=== PATIENT | female | born 1945 ===

== ENCOUNTER 2017-06-05 23:05 | Observation (INO) | payer MEDICARE, OTHER ==
[2017-06-05 23:12] VITALS: RESP 16
[2017-06-06 00:30] LABS: BASO % 0.6 % (0.0-2.0); EOS # 0.2 K/uL (0.0-0.7); EOS % 2.9 % (0.0-4.0); HEMATOCRIT 36.4 % (34.0-47.0); LYMPH # 1.5 K/uL (1.0-4.3); LYMPH % 22.3 % (20.0-40.0); MEAN CELL VOLUME 84.2 fl (81.0-99.0); MEAN CORPUSCULAR HEMOGLOBIN 28.6 pg (27.0-31.0); MEAN CORPUSCULAR HGB CONC 33.9 g/dL (33.0-37.0); MEAN PLATELET VOLUME 7.5 fl (7.2-11.7); MONO # 0.4 K/uL (0.0-0.8); MONO % 6.9 % (0.0-10.0); NEUT # 4.4 K/uL (1.8-7.0); NEUT % 67.3 % (50.0-75.0); RED CELL DISTRIBUTION WIDTH 12.8 % (11.5-14.5); WHITE BLOOD COUNT 6.5 K/uL (4.8-10.8)
[2017-06-06 00:42] LABS: ALB/GLOB RATIO 1.3 (1.0-2.1); ALKALINE PHOSPHATASE 64 U/L (38-126); ALT/SGPT 27 U/L (9-52); AST/SGOT 19 U/L (14-36); BILIRUBIN,TOTAL 0.5 mg/dl (0.2-1.3); BLOOD UREA NITROGEN 25 mg/dl (7-17); CALCIUM 9.3 mg/dL (8.4-10.2); CARBON DIOXIDE 26 mmol/L (22-30); CHLORIDE 103 mmol/L (98-107); GFR AFRICAN-AMERICAN > 60; GLUCOSE,RANDOM 119 mg/dL (65-105); POTASSIUM 4.1 MMOL/L (3.6-5.0); SODIUM 140 mmol/l (132-148); TOTAL PROTEIN 7.3 G/DL (6.3-8.2)
--- NOTE | 2017-06-06 01:05 | ED PDOC ---
HPI: Abdomen Time Seen by Provider: 06/05/17 23:28 Chief Complaint (Nursing): Abdominal Pain Chief Complaint (Provider): epigastric pain History Per: Patient History/Exam Limitations: no limitations Additional Complaint(s): 71yo F with PMHx of HTN, DM, Asthma and ME x2 in 2007 and a TIA (Pt does not remember year), presents to ER with acute onset of epigastic pain radiating to back 10 with associated nausea without vomiting, cold sweats, dizziness and palpitations lasting several minutes prior to EMS arrivigin. Symptoms now are resolving. no longer has epigastic pain, but has decreases nausea and dizziness. PMD: MD Aleah Past Medical History Reviewed: Historical Data, Nursing Documentation, Vital Signs Vital Signs: Last Vital Signs Temp 97.4 F L 06/05/17 23:09 Pulse 64 06/05/17 23:09 Resp 16 06/05/17 23:09 BP 136/80 06/05/17 23:09 Pulse Ox 98 06/05/17 23:09 - Medical History PMH: Arthritis, Asthma, Cardia Arrhythmia, HTN - Family History Family History: States: No Known Family Hx - Home Medications Home Medications: Ambulatory Orders Medication Instructions Recorded Albuterol Sulfate [Proventil Hfa] 1 puff PO DAILY PRN 06/06/17 Aspirin [Aspirin Chewable] 81 mg PO DAILY 06/06/17 Carvedilol [Coreg] 50 mg PO DAILY 06/06/17 Cholecalciferol [Vitamin D 1000 IU] 1 tab PO DAILY 06/06/17 Escitalopram [Lexapro] 20 mg PO DAILY 06/06/17 Fluticasone/Salmeterol [Advair 1 puff PO DAILY 06/06/17 250-50 Diskus] Glyburide/Metformin HCl 1 tab PO BID 06/06/17 [Glyburid-Metformin 1.25-250 mg] Losartan [Cozaar] 100 mg PO DAILY 06/06/17 Meloxicam [Mobic] 15 mg PO DAILY 06/06/17 Pravastatin Sodium [Pravachol] 20 mg PO DAILY 06/06/17 Ranitidine HCl [Acid Machine Burrer] 150 mg PO BID 06/06/17 amLODIPine [Norvasc] 10 mg PO DAILY 06/06/17 - Allergies Allergies/Adverse Reactions: Allergies Allergy/AdvReac Type Severity Reaction Status Date / Time codeine Allergy DIZZINESS Verified 06/05/17 23:08 FISH Allergy VOMITING Verified 06/05/17 23:09 Review of Systems ROS Statement: Except As Marked, All Systems Reviewed And Found Negative Constitutional: Positive for: Chills, Sweats. Negative for: Fever, Malaise Cardiovascular: Positive for: Palpitations. Negative for: Chest Pain Respiratory: Positive for: Shortness of Breath Gastrointestinal: Positive for: Abdominal Pain. Negative for: Nausea Physical Exam - Reviewed Nursing Documentation Reviewed: Yes Vital Signs Reviewed: Yes - Physical Exam Appears: Positive for: Well, Non-toxic, No Acute Distress Skin: Positive for: Normal Color, Warm, DRY Eye Exam: Positive for: EOMI, Normal appearance, PERRL Neck: Positive for: Normal, Painless ROM Cardiovascular/Chest: Positive for: Regular Rate, Rhythm Respiratory: Positive for: CNT, Normal Breath Sounds Gastrointestinal/Abdominal: Positive for: Normal Exam, Bowel Sounds, Soft. Negative for: Tenderness Back: Positive for: Normal Inspection Extremity: Positive for: Normal ROM Neurologic/Psych: Positive for: Alert, Oriented - Laboratory Results Result Diagrams: 06/06/17 00:20 06/06/17 00:34 - ECG ECG: Positive for: Interpreted By Me (reviewed by MD Zandra) ECG Rhythm: Positive for: Normal QRS, Normal ST Segment, Sinus Rhythm O2 Sat by Pulse Oximetry: 98 - Radiology X-Ray: Interpreted by Me X-Ray Interpretation: No Acute Disease - Progress ED Course And Treament: 06/06/17 06/06/17 00:34 00:20 WBC 6.5 RBC 4.32 Hgb 12.3 Hct 36.4 MCV 84.2 MCH 28.6 MCHC 33.9 RDW 12.8 Plt Count 163 MPV 7.5 Neut % (Auto) 67.3 Lymph % (Auto) 22.3 [place] % (Auto) 6.9 Eos % (Auto) 2.9 Baso % (Auto) 0.6 Neut # 4.4 Lymph # 1.5 [place] # 0.4 Eos # 0.2 Baso # 0.0 Sodium 140 Potassium 4.1 Chloride 103 Carbon Dioxide 26 Anion Gap 15 BUN 25 H Creatinine 0.8 Est GFR ( Amer) > 60 Est GFR (Non-Af Amer) > 60 Random Glucose 119 H Calcium 9.3 Total Bilirubin 0.5 AST 19 ALT 27 Alkaline Phosphatase 64 Troponin I < 0.0120 Total Protein 7.3 Albumin 4.1 Globulin 3.2 Albumin/Globulin Ratio 1.3 Re-evaluation Time: 01:07 Condition: Improved (with use of zofran and pepcid. ) Medical Decision Making Medical Decision Making: pt will require admission observation to telemetry for Chest pain for repeat labs in the AM. Pt has many risk factors and would benefit from at least one night observation in telemetry. pt will be admitted to [facility]-Hospitalist Disposition - Clinical Impression Clinical Impression: Chest pain - Patient ED Disposition Is Patient to be Admitted: Yes - Disposition Disposition Time: 01:11 Condition: STABLE - Pt Status Changed To: Hospital Disposition Of: Inpatient - Admit Certification Admit to Inpatient:: After my assessment, the patient will require hospitalization for at least two midnights. This is because of the severity of symptoms shown, intensity of services needed, and/or the medical risk in this patient being treated as an outpatient.
[2017-06-06] MEDS ORDERED: Albuterol-Ipratrop 3 mg / 0.5 (3 ml) UD INH PRN (01:23)
--- NOTE | 2017-06-06 01:26 | CP.PCM.HP ---
History of Present Illness - History of Present Illness History of Present Illness: CC: Chest/Epigastric pain HPI: This is a 71 y/o female with MHx significant for HTN, DM2, CAD with CO in past, and ?TIA as well as asthma. She presents with acute onset of epigastric/ chest pain radiating to back with associated nausea, palpitations, diaphoresis, and dizziness. She has not had symptoms like this recently, but has had them in the distant past. Denies focal weakness, denies SOB, denies f/c, denies cough. Nothing makes symptoms better or worse, but given that the symptoms persisted, she called EMS. Currently symptoms have improved. ROS: 14 systems reviewed, negative other than HPI MHx: HTN, DM2, CAD/CO, TIA, asthma SHx: Cath/stent, head/scalp surgery Allergy: Codeine, fish Medications: As per med rec Family Hx: No relevant findings on on review Social Hx: Lives with family, no tobacco, no EtOH Surrogate: Son Present on Admission - Present on Admission Any Indicators Present on Admission: No Past Patient History - Past Social History Smoking Status: Never Smoked - CARDIAC Hx Cardia Arrhythmia: Yes Hx Hypertension: Yes - PULMONARY Hx Asthma: Yes - ENDOCRINE/METABOLIC Hx Diabetes Mellitus Type 2: Yes - MUSCULOSKELETAL/RHEUMATOLOGICAL Hx Arthritis: Yes - PSYCHIATRIC Hx Substance Use: No - SURGICAL HISTORY Hx Surgeries: No Meds Allergies/Adverse Reactions: Allergies Allergy/AdvReac Type Severity Reaction Status Date / Time codeine Allergy DIZZINESS Verified 06/05/17 23:08 FISH Allergy VOMITING Verified 06/05/17 23:09 Physical Exam - Constitutional Appears: No Acute Distress - Head Exam Head Exam: ATRAUMATIC, NORMOCEPHALIC - Eye Exam Eye Exam: EOMI, PERRL - ENT Exam ENT Exam: Mucous Membranes Moist - Neck Exam Neck exam: Positive for: Full Rom - Respiratory Exam Respiratory Exam: Clear to Auscultation Bilateral, NORMAL BREATHING PATTERN - Cardiovascular Exam Cardiovascular Exam: REGULAR RHYTHM, +S1, +S2 - GI/Abdominal Exam GI & Abdominal Exam: Normal Bowel Sounds, Soft - Extremities Exam Extremities exam: Positive for: full ROM, pedal edema - Neurological Exam Neurological exam: Alert, CN II-XII Intact, Oriented x3 - Psychiatric Exam Psychiatric exam: Normal Affect, Normal Mood - Skin Skin Exam: Dry, Warm Results - Vital Signs Recent Vital Signs: Last Vital Signs Temp 97.4 F L 06/05/17 23:09 Pulse 64 06/05/17 23:09 Resp 16 06/05/17 23:09 BP 136/80 06/05/17 23:09 Pulse Ox 98 06/06/17 01:12 - Labs Result Diagrams: 06/06/17 00:20 06/06/17 00:34 Labs: Laboratory Results - last 24 hr 06/06/17 06/06/17 00:20 00:34 WBC 6.5 RBC 4.32 Hgb 12.3 Hct 36.4 MCV 84.2 MCH 28.6 MCHC 33.9 RDW 12.8 Plt Count 163 MPV 7.5 Neut % (Auto) 67.3 Lymph % (Auto) 22.3 [place] % (Auto) 6.9 Eos % (Auto) 2.9 Baso % (Auto) 0.6 Neut # 4.4 Lymph # 1.5 [place] # 0.4 Eos # 0.2 Baso # 0.0 Sodium 140 Potassium 4.1 Chloride 103 Carbon Dioxide 26 Anion Gap 15 BUN 25 H Creatinine 0.8 Est GFR ( Amer) > 60 Est GFR (Non-Af Amer) > 60 Random Glucose 119 H Calcium 9.3 Total Bilirubin 0.5 AST 19 ALT 27 Alkaline Phosphatase 64 Troponin I < 0.0120 Total Protein 7.3 Albumin 4.1 Globulin 3.2 Albumin/Globulin Ratio 1.3 - EKG Data EKG Interpreted by: Myself EKG shows normal: Sinus rhythm Rate: Normal - Imaging and Cardiology Chest x-ray Status: Image reviewed by me (CXR WNL) Assessment & Plan (1) CAD (coronary artery disease) Assessment and Plan: 71 y/o female with DM2 and known CAD among other conditions presenting with chest/epigastric pain. 1) CAD/CP -admit tele -Serial trops, AM EKG -Lipase level -Echo in AM -Cont ASA, add SLNG -Zofran for n/v IV -Cont home BP medications 2) DM2 -hold metformin -Accuchecks with SSI, if in hospital >1, can transition to LA/SA regimen 3) DVT PPx -- SQ lovenox Status: Acute (2) Chest pain Status: Acute (3) DM2 (diabetes mellitus, type 2) Status: Acute (4) DVT prophylaxis Status: Acute
[2017-06-06 06:48] LABS: BLOOD UREA NITROGEN 21 mg/dl (7-17); CALCIUM 8.8 mg/dL (8.4-10.2); CARBON DIOXIDE 27 mmol/L (22-30); CHLORIDE 105 mmol/L (98-107); GFR AFRICAN-AMERICAN > 60; GLUCOSE,RANDOM 98 mg/dL (65-105); POTASSIUM 4.2 MMOL/L (3.6-5.0); SODIUM 143 mmol/l (132-148)
[2017-06-06 08:10] LABS: BASO % 0.5 % (0.0-2.0); EOS # 0.1 K/uL (0.0-0.7); EOS % 2.1 % (0.0-4.0); HEMATOCRIT 35.2 % (34.0-47.0); LYMPH # 1.6 K/uL (1.0-4.3); LYMPH % 28.7 % (20.0-40.0); MEAN CORPUSCULAR HEMOGLOBIN 28.9 pg (27.0-31.0); MEAN CORPUSCULAR HGB CONC 34.4 g/dL (33.0-37.0); MEAN PLATELET VOLUME 7.3 fl (7.2-11.7); MONO # 0.4 K/uL (0.0-0.8); NEUT # 3.5 K/uL (1.8-7.0); NEUT % 61.7 % (50.0-75.0); NRBC % 0.1 % (0.0-0.0); RED CELL DISTRIBUTION WIDTH 12.8 % (11.5-14.5); WHITE BLOOD COUNT 5.6 K/uL (4.8-10.8)
[2017-06-06] MEDS: Insulin Lispro (humaLOG) 100 Units/ml Inj SC SCH ×2 (08:45→12:11)
[2017-06-06 08:48] VITALS: TEMP 97.7; O2SAT 97
--- NOTE | 2017-06-06 08:51 | RAD ---
HISTORY: cough COMPARISON: No prior. TECHNIQUE: Chest PA and lateral FINDINGS: LUNGS: No active pulmonary disease. PLEURA: No significant pleural effusion identified. No pneumothorax apparent. CARDIOVASCULAR: Normal. OSSEOUS STRUCTURES: No significant abnormalities. VISUALIZED UPPER ABDOMEN: Normal. OTHER FINDINGS: None. IMPRESSION: No active disease.
[2017-06-06] MEDS ORDERED: Patient's Own Med (Ranitidine Hcl [Acid Reducer] 150 mg) PO SCH (09:00)
[2017-06-06] MEDS ORDERED: Pravastatin Sodium 20 MG TAB PO SCH (09:00)
[2017-06-06] MEDS ORDERED: Enoxaparin 40 mg Syringe SC SCH (09:00)
[2017-06-06] MEDS ORDERED: Fluticasone-Salmeterol 250-50mcg Diskus INH SCH (09:00)
[2017-06-06 09:59] VITALS: PULSE 71
[2017-06-06] MEDS ORDERED: Pravastatin Sodium 20 MG TAB PO ONE (10:43)
[2017-06-06 10:47] VITALS: BP 122/79
--- NOTE | 2017-06-06 12:07 | CARD ---
APPROVED REPORT EKG Measurement Heart [id number] <Conclusion> Normal sinus rhythm Normal ECG
--- NOTE | 2017-06-06 13:31 | CARD ---
APPROVED REPORT EXAM: Two-dimensional and M-mode echocardiogram with Doppler and color Doppler. Other Information Quality : GoodRhythm : NSR INDICATION Chest Pain 2D DIMENSIONS IVSd1.07 (0.7-1.1cm)LVDd4.51 (3.9-5.9cm) LVOT Diameter2.01 (1.8-2.4cm)PWd1.04 (0.7-1.1cm) IVSs1.20 (0.8-1.2cm)LVDs2.62 (2.5-4.0cm) FS (%) 41.9 %PWs1.26 (0.8-1.2cm) M-Mode DIMENSIONS Left Atrium (MM)4.26 (2.5-4.0cm)IVSd1.03 (0.7-1.1cm) Aortic Root3.35 (2.2-3.7cm)LVDd5.24 (4.0-5.6cm) Aortic Cusp Exc.2.09 (1.5-2.0cm)PWd1.15 (0.7-1.1cm) IVSs1.74 cmFS (%) 49 % LVDs2.68 (2.0-3.8cm)PWs1.62 cm Mitral Valve MV E Kvkmvkew92.0cm/sMV DECEL [id number] A Yrshgltx262.9cm/s MV QZO59czW/A ratio0.8MVA (PHT)2.51cm2 TDI Lateral E' Peak V8.80cm/sMedial E' Peak V5.62cm/sE/Lateral E'9.8 E/Medial E'15.3 Pulmonary Valve PV Peak Feqqdmqb460.0cm/s LEFT VENTRICLE The left ventricle is normal in size. There is normal left ventricular wall thickness. The left ventricular function is normal. The left ventricular ejection fraction is - 70-75%. There is normal LV segmental wall motion. Transmitral Doppler flow pattern is Grade I-abnormal relaxation pattern. No left ventricle thrombus noted on this study. There is no ventricular septal defect visualized. There is no left ventricular aneurysm. There is no mass noted in the left ventricle. RIGHT VENTRICLE The right ventricle is normal size. There is normal right ventricular wall thickness. The right ventricular systolic function is normal. ATRIA The left atrium is mildly dilated. There is no thrombus suspected in the left atrium. The right atrium size is normal. The interatrial septum is intact with no evidence for an atrial septal defect. AORTIC VALVE The aortic valve is mildly calcified. No aortic regurgitation is present. There is no aortic valvular stenosis. There is no aortic valvular vegetation. MITRAL VALVE The mitral valve is normal in structure. There is no evidence of mitral valve prolapse. There is no mitral valve stenosis. There is no mitral valve regurgitation noted. TRICUSPID VALVE The tricuspid valve is normal in structure. There is no tricuspid valve regurgitation noted. There is no tricuspid valve prolapse or vegetation. There is no tricuspid valve stenosis. PULMONIC VALVE The pulmonary valve is normal in structure. There is trace pulmonic valvular regurgitation. GREAT VESSELS The aortic root is normal in size. The IVC is normal in size and collapses >50% with inspiration. PERICARDIAL EFFUSION The pericardium appears normal. There is no pleural effusion. <Conclusion> The left ventricle is normal in size and wall thickness. The left ventricular function is normal. The left ventricular ejection fraction is - 70-75%. The left atrium is mildly dilated. The aortic valve is mildly calcified but not stenotic. The mitral and tricuspid valves are normal.
--- NOTE | 2017-06-06 13:40 | CP.PCM.DIS ---
Provider - Provider Date of Admission: 06/06/17 00:55 Attending physician: Josefina Grant MD Primary care physician: Dr Bullard Time Spent in preparation of Discharge (in minutes): 35 Diagnosis - Discharge Diagnosis (1) Chest pain Status: Acute (2) CAD (coronary artery disease) Status: Chronic (3) TIA (transient ischemic attack) Status: Chronic (4) DM2 (diabetes mellitus, type 2) Status: Chronic (5) DVT prophylaxis Status: Acute Hospital Course - Lab Results Lab Results: Most Recent Lab Values WBC 5.6 K/uL (4.8-10.8) 06/06/17 05:00 RBC 4.19 Mil/uL (3.80-5.20) 06/06/17 05:00 Hgb 12.1 g/dL (12.0-16.0) 06/06/17 05:00 Hct 35.2 % (34.0-47.0) 06/06/17 05:00 MCV 84.0 fl (81.0-99.0) 06/06/17 05:00 MCH 28.9 pg (27.0-31.0) 06/06/17 05:00 MCHC 34.4 g/dL (33.0-37.0) 06/06/17 05:00 RDW 12.8 % (11.5-14.5) 06/06/17 05:00 Plt Count 159 K/uL (130-400) 06/06/17 05:00 MPV 7.3 fl (7.2-11.7) 06/06/17 05:00 Neut % (Auto) 61.7 % (50.0-75.0) 06/06/17 05:00 Lymph % (Auto) 28.7 % (20.0-40.0) 06/06/17 05:00 [place] % (Auto) 7.0 % (0.0-10.0) 06/06/17 05:00 Eos % (Auto) 2.1 % (0.0-4.0) 06/06/17 05:00 Baso % (Auto) 0.5 % (0.0-2.0) 06/06/17 05:00 Neut # 3.5 K/uL (1.8-7.0) 06/06/17 05:00 Lymph # 1.6 K/uL (1.0-4.3) 06/06/17 05:00 [place] # 0.4 K/uL (0.0-0.8) 06/06/17 05:00 Eos # 0.1 K/uL (0.0-0.7) 06/06/17 05:00 Baso # 0.0 K/uL (0.0-0.2) 06/06/17 05:00 Sodium 143 mmol/l (132-148) 06/06/17 05:45 Potassium 4.2 MMOL/L (3.6-5.0) 06/06/17 05:45 Chloride 105 mmol/L (98-107) 06/06/17 05:45 Carbon Dioxide 27 mmol/L (22-30) 06/06/17 05:45 Anion Gap 15 (10-20) 06/06/17 05:45 BUN 21 mg/dl (7-17) H 06/06/17 05:45 Creatinine 0.7 mg/dL (0.7-1.2) 06/06/17 05:45 Est GFR ( Amer) > 60 06/06/17 05:45 Est GFR (Non-Af Amer) > 60 06/06/17 05:45 Random Glucose 98 mg/dL (65-105) 06/06/17 05:45 Calcium 8.8 mg/dL (8.4-10.2) 06/06/17 05:45 Total Bilirubin 0.5 mg/dl (0.2-1.3) 06/06/17 00:34 AST 19 U/L (14-36) 06/06/17 00:34 ALT 27 U/L (9-52) 06/06/17 00:34 Alkaline Phosphatase 64 U/L (38-126) 06/06/17 00:34 Troponin I < 0.0120 ng/mL (0.00-0.120) 06/06/17 12:00 Total Protein 7.3 G/DL (6.3-8.2) 06/06/17 00:34 Albumin 4.1 g/dL (3.5-5.0) 06/06/17 00:34 Globulin 3.2 gm/dL (2.2-3.9) 06/06/17 00:34 Albumin/Globulin Ratio 1.3 (1.0-2.1) 06/06/17 00:34 Lipase 230 U/L (23-300) 06/06/17 03:20 - Hospital Course Hospital Course: 71 y/o lady with hx of HTN, DM, ? CAD, TIA, came in because of substernal chest pain . 1) Chest pain , ACS ruled out, CP prob sec to GERD Status: Acute ASA, statin , BB and ARB continued EKG : normal serial Troponin negative CP resolved cont H2 steven Discussed case with pt's Flight Tower Dispatcher - Dr Urban - he said that pt had a Stress test done a few months ago w/c was negative. Cardiac cath done at [facility] a[facility] ago was negative . He rec to d/c home and pt to ff up with him or Dr Wallace greer for further outpt work up CXR : negative (2) CAD (coronary artery disease) Status: Chronic cont ASA, Statin, BB and ARB (3) TIA (transient ischemic attack) Status: Chronic cont ASA and statin (4) DM2 (diabetes mellitus, type 2) controlled Status: Chronic cont Glyburide and Metformin accucheck (5) DVT prophylaxis Status: Acute Lovenox Discharge Exam - Head Exam Head Exam: ATRAUMATIC, NORMAL INSPECTION, NORMOCEPHALIC - Eye Exam Eye Exam: EOMI, Normal appearance Pupil Exam: NORMAL ACCOMODATION - ENT Exam ENT Exam: Mucous Membranes Moist, Normal External Ear Exam - Neck Exam Neck exam: Full Rom - Respiratory Exam Respiratory Exam: NORMAL BREATHING PATTERN. absent: Respiratory Distress - Cardiovascular Exam Cardiovascular Exam: REGULAR RHYTHM, +S1, +S2 - GI/Abdominal Exam GI & Abdominal Exam: Normal Bowel Sounds, Soft. absent: Tenderness - Extremities Exam Extremities exam: full ROM, normal capillary refill, pedal pulses present - Back Exam Back exam: FULL ROM, NORMAL INSPECTION. absent: CVA tenderness (L), CVA tenderness (R) - Neurological Exam Neurological exam: Alert, CN II-XII Intact, Oriented x3, Reflexes Normal - Psychiatric Exam Psychiatric exam: Normal Affect, Normal Mood - Skin Skin Exam: Dry, Normal Color, Warm Discharge Plan - Follow Up Plan Condition: GOOD Disposition: HOME/ ROUTINE Instructions: Acute Abdominal Pain (ED), Acute Abdominal Pain (DC) Additional Instructions: ff up with Dr Wallace greer appt with Dr Aleah greer Referrals: Jong Gonsalez MD [Staff Provider] - Benjie Bullard MD [Staff Provider] -
== END 2017-06-06 20:41 | disposition home or self-care (01) ==
LOC: H.ER 23:05 → H.ERHOLD 06-06 00:55
PROVIDERS: ADMIT Internal Medicine; ATTEND Internal Medicine
DX: R07.89 Other chest pain (principal); I25.10 Atherosclerotic heart disease of native coronary artery without angina pectoris; E11.9 Type 2 diabetes mellitus without complications; Z86.73 Personal history of transient ischemic attack (TIA), and cerebral infarction without residual deficits; I10 Essential (primary) hypertension; I25.2 Old myocardial infarction; J45.909 Unspecified asthma, uncomplicated; Z79.1 Long term (current) use of non-steroidal anti-inflammatories (NSAID); Z79.899 Other long term (current) drug therapy; M19.90 Unspecified osteoarthritis, unspecified site; R00.2 Palpitations; R10.13 Epigastric pain; R11.2 Nausea with vomiting, unspecified
CPT/HCPCS: 71020; 80053; 82948; 83690; 84484; 85025; 93005; 93306; 96372; 96374; 99283; G0378; J1650; J2405